=== PATIENT | male | born 1985 ===

== ENCOUNTER 2017-05-02 13:28 | Inpatient (IN) | payer OTHER ==
[~2017-05-02] VITALS: Ht 172.7 cm; Wt 71.7 kg
[~2017-05-02 13:28] MED LIST: HUMALOG100 U/ML SQ; LANTUS100 U/ML SQ; PROTONIX40 MG PO; REGLAN5 MG/5 ML PO
== END 2017-05-06 09:33 | disposition home or self-care (01) | DRG 872 ==
LOC: ER 13:28 → MEDI 05-03 08:02
DX: A41.9 Sepsis, unspecified organism (principal); N17.8 Other acute kidney failure; E86.0 Dehydration; K29.00 Acute gastritis without bleeding; E10.43 Type 1 diabetes mellitus with diabetic autonomic (poly)neuropathy; E10.65 Type 1 diabetes mellitus with hyperglycemia; K31.84 Gastroparesis; J01.80 Other acute sinusitis

== ENCOUNTER 2017-11-21 14:17 | Inpatient (IN) | payer OTHER ==
[~2017-11-21] VITALS: Ht 172.7 cm; Wt 72.6 kg
== END 2017-11-24 15:02 | disposition home or self-care (01) | DRG 391 ==
LOC: ER 14:17 → SEC-K 11-22 08:38 → MEDJ 11-22 11:36
PROC: 4A033R1 Measurement of Arterial Saturation, Peripheral, Percutaneous Approach (ICD-10-PCS; principal; 2017-11-22)
DX: K29.00 Acute gastritis without bleeding (principal); A41.9 Sepsis, unspecified organism; N17.8 Other acute kidney failure; E10.43 Type 1 diabetes mellitus with diabetic autonomic (poly)neuropathy; E10.65 Type 1 diabetes mellitus with hyperglycemia; K31.84 Gastroparesis; E86.0 Dehydration; R39.2 Extrarenal uremia